=== PATIENT | female | born 1950 | race Caucasian/White ===

== ENCOUNTER 2018-06-29 20:19 | Inpatient (IN) | payer MEDICARE, BC ==
[~2018-06-29] VITALS: Ht 160 cm; Wt 64.2 kg
--- NOTE | 2018-06-29 20:34 | NUR ---
PT BIBSELF. PT STATES SHE SWALLOWED RICE & FEELS SOMETHING STUCK IN MID CHEST. PT STATES SHE HAS DIFFICULTY TAKING DEEP BREATH IN AND SWALLOWING. PT C/O SHARP PAIN IN MID CHEST. PT IS AAOX4. RESPIRATIONS EVEN AND UNLABORED. IS WITH PT AT BEDSIDE. PT PLACED ON MONITOR, WAITING FOR MD EVALUATION.
--- NOTE | 2018-06-29 20:40 | NUR ---
MD AT BEDSIDE FOR EVALUATION
--- NOTE | 2018-06-29 20:50 | NUR ---
INITIATED IV RIGHT AC 18G. COLLECTED BLOOD SPECIMEN. LAB AT BEDSIDE FOR LEAD ENTERPRISE ARCHITECT
[2018-06-29] MEDS ORDERED: ONDANSETRON HCL/PF 4 MG/2 ML VIAL ONE (20:53)
[2018-06-29] MEDS ORDERED: MAG HYDROX/AL HYDROX/SIMETH 30 ML UDC ONE (20:53)
[2018-06-29 20:56] LABS: BASOPHILS % (AUTO) 0.5 % (0.0-2.0); EOSINOPHILS % (AUTO) 2.5 % (0.0-6.0); HEMATOCRIT 45 % (33-45); HEMOGLOBIN 15.3 g/dL (11.5-14.8); LYMPHOCYTES # (AUTO) 2.2 /CMM (0.8-4.8); LYMPHOCYTES % (AUTO) 38.8 % (20.0-44.0); MEAN CORPUSCULAR HEMOGLOBIN 32 PG (26.0-33.0); MEAN CORPUSCULAR HGB CONC 34 g/dl (31.0-36.0); MEAN CORPUSCULAR VOLUME 92 fL (82-100); MONOCYTES # (AUTO) 0.3 /CMM (0.1-1.30); MONOCYTES % (AUTO) 5.6 % (2.0-12.0); NEUTROPHILS # (AUTO) 3.1 /CMM (1.8-8.9); NEUTROPHILS % (AUTO) 52.6 % (43.0-81.0); PLATELET COUNT (AUTO) 307 /CMM (150-450); RDW COEFFICIENT OF VARIATION 11.2 (11.5-15.0); RED BLOOD CELL COUNT(AUTO) 4.85 MIL/uL (4.0-5.2); WHITE BLOOD COUNT (AUTO) 5.7 K/uL (4.3-11.0)
--- NOTE | 2018-06-29 20:57 | NUR ---
RADIOLOGIST AT BEDSIDE FOR CXR
[2018-06-29] MEDS ORDERED: ONDANSETRON HCL/PF 4 MG/2 ML VIAL IV ONE (21:00)
[2018-06-29] MEDS ORDERED: MORPHINE SULFATE INJ 2 MG/ML DISP.SYRIN IV ONE ×2 (21:00→22:00)
[2018-06-29] MEDS ORDERED: IV NS 0.9% 1,000 ML BAG IV ONE (21:00)
[2018-06-29] MEDS ORDERED: MAG HYDROX/AL HYDROX/SIMETH 30 ML UDC PO ONE (21:00)
--- NOTE | 2018-06-29 21:00 | NUR ---
ATTEMPTED TO PERFORM SWALLOW EVAL TO ADMINISTER MAALOX, PT REFUSED
[2018-06-29 21:05] LABS: CALCIUM, SERUM 9.6 mg/dL (8.5-10.1); CARBON DIOXIDE 28 mmol/L (21-32); CHLORIDE 101 mmol/L (98-107); CREATININE 0.8 mg/dL (0.6-1.3); GLUCOSE 102 mg/dL (74-106); POTASSIUM 3.6 mmol/L (3.5-5.1); SODIUM SERUM 139 mmol/L (136-145); UREA NITROGEN, BLOOD 18 mg/dL (7-18)
[2018-06-29 21:09] LABS: INR 0.9 (0.85-1.15)
[2018-06-29 21:11] LABS: ALANINE AMINOTRANSFERASE 26 U/L (12-78); ALBUMIN 4.3 g/dL (3.4-5.0); ALKALINE PHOSPHATASE 89 U/L (46-116); ASPARTATE AMINOTRANSFERASE 24 U/L (15-37); BILIRUBIN,DIRECT 0.1 mg/dL (0.0-0.2); BILIRUBIN,TOTAL 0.3 mg/dL (0.2-1.0); LIPASE 104 U/L (73-393); TOTAL PROTEIN, SERUM 8.8 g/dL (6.4-8.2)
[2018-06-29 21:13] LABS: TROPONIN I < 0.017 ng/mL (0.00-0.056)
[2018-06-29] MEDS ORDERED: GLUCAGON,HUMAN RECOMBINANT 1 MG/VIAL VIAL ONE (21:25)
[2018-06-29] MEDS ORDERED: GLUCAGON,HUMAN RECOMBINANT 1 MG/VIAL VIAL IV ONE (21:30)
--- NOTE | 2018-06-29 21:52 | NUR ---
CALLED RN SUP FOR M/S BED.
--- NOTE | 2018-06-29 21:55 | NUR ---
PAGED EPIC FOR PANEL CALL, WAITING FOR LOSS PREVENTION REPRESENTATIVE SARA CALL BACK.
[2018-06-29] MEDS ORDERED: MORPHINE SULFATE INJ 4 MG/ML DISP.SYRIN ONE (21:56)
--- NOTE | 2018-06-29 22:00 | NUR ---
PT CHANGED MIND AND AGREED TO MORPHINE. PER VERBAL MD ORDER, ADMINISTERED 4MG MORPHINE IV PUSH 1X NOW. IV 18G RIGHT AC.
--- NOTE | 2018-06-29 22:10 | NUR ---
PATIENT UNABLE TO SWALLOW. MAALOX UNABLE TO BE GIVEN. ER MD MADE AWARE
[2018-06-29] MEDS ORDERED: TEMA7.5C (22:24)
[2018-06-29] MEDS ORDERED: NORT50CA5 (22:24)
--- NOTE | 2018-06-29 22:25 | NUR ---
SARA ADMITTING FOR ESOPHAGEAL STRICTURE. AWAITING OFFICIAL ROOM
--- NOTE | 2018-06-29 22:27 | NUR ---
ROOM 312-2 [facility]
--- NOTE | 2018-06-29 22:29 | NUR ---
ADMIT TO 312-2
[2018-06-29] MEDS ORDERED: TEMAZEPAM 7.5 MG CAPSULE PO PRN (22:30)
--- NOTE | 2018-06-29 22:40 | NUR ---
GAVE REPORT TO CHASITY JULIO FOR DESTINEE
--- NOTE | 2018-06-29 22:55 | NUR ---
MS ENGINEERING PSYCHOLOGIST NOTES Patient came to unit via gurney, at bedside. Alert, oriented x 4. Breathing even and unlabored. Not in any distress. Patient denies any chest pain, states that it just feels uncomfortable. IV site on RAC g#18 patent and intact. No redness noted. Patient is ambulatory. Skin assessment done, no skin issues. Patient os 2L O2 via NC, saturating 100%. As per patient, her PCP told her she does not need pneumonia vaccine since she has immunoglobulin infusion. Oriented to call salvador. Safety measures in place. Call salvador within reach. Bed in low, locked position. Will monitor accordingly
--- NOTE | 2018-06-29 22:56 | NUR ---
PT TRANSFERRED TO [place] [address] [facility]IA [facility] WITH EMT
[2018-06-29 23:00] VITALS: BP 135/80
[2018-06-29] MEDS ORDERED: MORPHINE SULFATE INJ 2 MG/ML DISP.SYRIN IV PRN (23:00)
[2018-06-29] MEDS ORDERED: Z GUARD REMEDY 2 OZ OINT TP PRN (23:00)
[2018-06-29] MEDS ORDERED: HYDROCODONE/APAP 5/325MG 1 EACH TABLET PO PRN (23:00)
[2018-06-29] MEDS ORDERED: ACETAMINOPHEN 325 MG TABLET PO PRN (23:00)
[2018-06-29] MEDS ORDERED: ONDANSETRON HCL/PF 4 MG/2 ML VIAL IVP PRN (23:00)
[2018-06-29] MEDS ORDERED: MAG HYDROX/AL HYDROX/SIMETH 30 ML UDC PO PRN (23:00)
[2018-06-29] MEDS ORDERED: MAGNESIUM HYDROXIDE 30 ML UDC PO PRN (23:00)
[2018-06-29] MEDS: IV D5/0.45 NACL 1,000 ML IV PRN (23:29)
--- NOTE | 2018-06-29 23:30 | NUR ---
RN NOTES Peripheral IV of D5 1/2 NS started. Infusing at 75mL/hr. Patient aware that she is NPO.
--- NOTE | 2018-06-30 01:58 | NUR ---
RN NOTES As per STEEL HANDLER Sudha, offer morphine IV when it's due till morning. Patient stated that she does not have any pain as of the moment. She will inform staff when she needs it.
[2018-06-30 06:58] LABS: CALCIUM, SERUM 8.4 mg/dL (8.5-10.1); CREATININE 0.6 mg/dL (0.6-1.3); MAGNESIUM 2.1 mg/dL (1.8-2.4); PHOSPHORUS 3.7 mg/dL (2.5-4.9); POTASSIUM 4.1 mmol/L (3.5-5.1)
[2018-06-30 07:05] LABS: THYROID STIMULATING HORMONE 1.007 uIU/mL (0.358-3.74)
--- NOTE | 2018-06-30 07:10 | NUR ---
RN CLOSING NOTES Patient in bed, alert, oriented x 4. Breathing even and unlabored. Not in any distress. Peripheral IV infusing at 75mL/hr. No complaints as of this time. As per patient, she threw up a little around 12:30. Patient ambulatory and able to make needs known. All needs attended to. All medications given as ordered. Endorsed DESTINEE to AM shift RN.
[2018-06-30 07:26] LABS: BASOPHILS % (AUTO) 0.5 % (0.0-2.0); EOSINOPHILS % (AUTO) 1.1 % (0.0-6.0); HEMATOCRIT 37 % (33-45); HEMOGLOBIN 12.5 g/dL (11.5-14.8); LYMPHOCYTES # (AUTO) 1.9 /CMM (0.8-4.8); LYMPHOCYTES % (AUTO) 31.2 % (20.0-44.0); MEAN CORPUSCULAR HEMOGLOBIN 32 PG (26.0-33.0); MEAN CORPUSCULAR HGB CONC 34 g/dl (31.0-36.0); MEAN CORPUSCULAR VOLUME 96 fL (82-100); MONOCYTES # (AUTO) 0.4 /CMM (0.1-1.30); MONOCYTES % (AUTO) 6.3 % (2.0-12.0); NEUTROPHILS # (AUTO) 3.8 /CMM (1.8-8.9); NEUTROPHILS % (AUTO) 60.9 % (43.0-81.0); PLATELET COUNT (AUTO) 263 /CMM (150-450); RDW COEFFICIENT OF VARIATION 12.4 (11.5-15.0); RED BLOOD CELL COUNT(AUTO) 3.89 MIL/uL (4.0-5.2); WHITE BLOOD COUNT (AUTO) 6.2 K/uL (4.3-11.0)
--- NOTE | 2018-06-30 07:32 | NUR ---
RN OPENING NOTES RECEIVED PATIENT IN BED RESTING. A/OX4. NO ACUTE DISTRESS, NO SOB. DENIED PAIN OR DISCOMFORT AT THE MOMENT. IV SITE INTACT AND PATENT. KEPT PATIENT SAFE AND COMFORTABLE. BED IN LOW/LOCKED POSITION, SIDERAILS UPX2, CALL LIGHT IN REACH. WILL CONTINUE TO MONITOR ACCORDINGLY.
[2018-06-30 08:00] VITALS: BP 91/71
[2018-06-30] MEDS: PANTOPRAZOLE 40 MG VIAL IV SCH (09:53)
--- NOTE | 2018-06-30 12:01 | NUR ---
diet as tolerated per DR Stewart. EGD tomorrow. NPO after midnight.
[2018-06-30] MEDS ORDERED: TRAMADOL HCL 50 MG TABLET PO PRN (13:00)
[2018-06-30 16:00] VITALS: BP 101/64
[2018-06-30] MEDS: IV D5/0.45 NACL 1,000 ML IV PRN (16:08)
--- NOTE | 2018-06-30 19:00 | NUR ---
RN INITIAL NOTES Patient received in bed, alert, oriented x 4. Breathing even and unlabored. Not in any distress.Peripheral IV on RAC infusing at 75mL/hr, intact and patent. No complaints of discomfort as of this time. Patient stable as per the morning RN. Will continue to monitor accordingly
--- NOTE | 2018-06-30 19:20 | NUR ---
RN CLOSING NOTES PATIENT IN STABLE CONDITION. ALL NEEDS ATTENDED AND PROVIDED. ALL DUE MEDS GIVEN ORDERED. KEPT PATIENT SAFE AND COMFORTABLE. BED IN LOW/LOCKED POSITION, SIDERAILS UPX2, HOB ELEVATED, CALL LIGHT IN REACH. ENDORSED TO NIGHT RN FOR DESTINEE.
[2018-06-30 20:00] VITALS: BP 91/54
[2018-06-30 21:16] VITALS: BP 98/63
--- NOTE | 2018-06-30 21:18 | NUR ---
RN NOTES PATIENT'S BLOOD PRESSURE RECHECKED, 98/53mmHg
[2018-07-01] VITALS (7 sets, daily range): BP systolic 100–127; BP diastolic 52–68
[2018-07-01] MEDS: IV D5/0.45 NACL 1,000 ML IV PRN (04:55)
--- NOTE | 2018-07-01 07:24 | NUR ---
RN CLOSING NOTES Patient in bed, alert, oriented x 4. Breathing even and unlabored. Not in any distress. Peripheral IV infusing at 75mL/hr. No complaints as of this time. Patient ambulatory and able to make needs known. All needs attended to. All medications given as ordered. Scheduled for EGD today at 11:50AM. NPO since midnight. Consent in chart. Will endorse DESTINEE to AM shift RN.
--- NOTE | 2018-07-01 08:00 | NUR ---
SAFETY FIRE BOSS NOTES PATIENT IN BED ALERT, ORIENTED X3 NO SOB OR ACUTE DISTRESS NOTED. PATIENT NPO AWAITING FOR EGD. PERIPHERAL IV INTACT PATENT. BED IN LOW LOCKED POSITION, CALL LIGHT WITHIN WILL CONTINUE TO MONITOR.
[2018-07-01] MEDS: PANTOPRAZOLE 40 MG VIAL IV SCH (08:29)
--- NOTE | 2018-07-01 12:10 | NUR ---
MS RN NOTES PATIENT RETURNED TO ROOM S/P EGD IN STABLE CONDITION.
[2018-07-01] MEDS ORDERED: NIFEdipine (10MG) 10 MG CAPSULE PO SCH (13:00)
--- NOTE | 2018-07-01 14:40 | NUR ---
MS RN NOTES PATIENT DISCHARGED HOME IN STABLE CONDITION NO SOB OR ACUTE DISTRESS NOTED. PATIENT ALERT, ORIENTED X3 SON AT BED SIDE. DISCHARGE TEACHING PROVIDED, VERBALIZED UNDERSTANDING. ALL BELONGINGS ACCOUNTED FOR, BELONGING LIST SIGNED. CONFIRMED WITH DR. HARDIN, NO NEW ORDERS GIVEN. PATIENT CLEARED FOR DISCHARGE TO FOLLOW UP WITH PRIMARY CARE PROVIDER AND GI. PERIPHERAL IV REMOVED WITH MINIMAL BLEEDING. ID BAND REMOVED. MD AWARE OF ALL ABNORMAL LABS. PATIENT ESCORTED TO CAR.
== END 2018-07-01 14:00 | disposition home or self-care (01) | DRG 392 ==
LOC: ER 20:21 → MED 22:46
PROVIDERS: ADMIT Registered Nurse; ATTEND Registered Nurse
PROC: 0DB68ZX Excision of Stomach, Via Natural or Artificial Opening Endoscopic, Diagnostic (ICD-10-PCS; principal; 2018-07-01 11:35)
DX: K22.4 Dyskinesia of esophagus (principal); R13.10 Dysphagia, unspecified; K29.80 Duodenitis without bleeding; K31.7 Polyp of stomach and duodenum; K25.9 Gastric ulcer, unspecified as acute or chronic, without hemorrhage or perforation; G47.00 Insomnia, unspecified; F41.9 Anxiety disorder, unspecified; Z96.651 Presence of right artificial knee joint; K21.0 Gastro-esophageal reflux disease with esophagitis; R07.9 Chest pain, unspecified
CPT/HCPCS: 36415; 71045-TC; 80048-TC; 80061-TC; 80076-TC; 83690-TC; 83735-TC; 84100-TC; 84443-TC; 84484-TC; 85025-TC; 85730-TC; 87081-TC; 88305-TC; 88312-TC; 88342; 92611-TC; A4606; C9113; J1610; J2270; J2405; J2704; J3490; J7030; Z7610